=== PATIENT | female | born 1995 | race Caucasian/White ===

== ENCOUNTER 2019-09-28 20:13 | Emergency (ER) | payer BC, OTHER ==
[2019-09-28 20:27] VITALS: TEMP 98.3; BMI 16.6
[2019-09-28] MEDS ORDERED: SODIUM CHLORIDE 1,000 ML IV STA (20:54)
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
[2019-09-28] MEDS ORDERED: FOLIC ACID INJECTION - 1 MG, THIAMINE HCL 100 MG, MULTIVIT INJECTION ADULT 10 ML in SOD... IVPB ONE (21:09)
[2019-09-28 21:37] LABS: BASO % 0.6 % (0-2.0); EOS % 0.3 % (0-4.5); HEMATOCRIT 42.5 % (32.4-45.2); HEMOGLOBIN 14.9 GM/dL (10.7-15.3); LYMPH % 24.5 % (8-40); MCH 32.6 pg (25.7-33.7); MEAN CELL VOLUME 93.3 fl (80-96); NEUT % 64.6 % (42.8-82.8); PLATELET COUNT 287 K/MM3 (134-434); RBC 4.56 M/mm3 (3.60-5.2); RDW 14.1 % (11.6-15.6); WHITE BLOOD COUNT 6.3 K/mm3 (4.0-10.0)
--- NOTE | 2019-09-28 21:40 | PDOC ---
*Physical Exam - Vital Signs Last Vital Signs Temp Pulse Resp BP Pulse Ox 98.3 F 104 H 19 124/72 98 09/28/19 20:20 09/28/19 20:20 09/28/19 20:20 09/28/19 20:20 09/28/19 20:20 ED Treatment Course - LABORATORY CBC & Chemistry Diagram: 09/28/19 21:25 09/28/19 21:25 - ADDITIONAL ORDERS Additional order review: 09/28/19 21:25 RBC 4.56 MCV 93.3 MCHC 35.0 RDW 14.1 MPV 9.0 Neutrophils % 64.6 Lymphocytes % 24.5 Monocytes % 10.0 Eosinophils % 0.3 Basophils % 0.6 Medical Decision Making - Medical Decision Making 09/28/19 21:39 Patient seen by the advanced practice provider under my direct supervision. Ancillary testing reviewed as necessary. I agree with plan as outlined by the advanced practice provider. Discharge - Discharge Information Problems reviewed: Yes Clinical Impression/Diagnosis: Cystitis Condition: Fair Disposition: HOME - Additional Discharge Information Prescriptions: Cephalexin Monohydrate [Keflex -] 500 mg PO BID #14 capsule - Follow up/Referral - Patient Discharge Instructions Additional Instructions: Rest, drink lots of fluids: Teas, water, soups Avoid contact with others until fevers and symptoms resolved Lots of handwashing and good hygiene Continue [id number] medications for symptomatic relief Tylenol or Motrin for fever and pain Continue all of antibiotics until completed Followup with private physician in one week for repeat urinalysis/reevaluation Return to emergency department for worsened symptoms, fevers, dehydration - Post Discharge Activity
[2019-09-28] MEDS ORDERED: diazePAM 5 MG TABLET PO ONE (21:59)
[2019-09-28] MEDS ORDERED: ONDANSETRON 4 MG/2 ML VIAL IVPUSH ONE (21:59)
[2019-09-28] MEDS ORDERED: diazePAM 5 MG TABLET ONE (22:04)
[2019-09-28] MEDS ORDERED: ONDANSETRON 4 MG/2 ML VIAL ONE (22:04)
[2019-09-28 22:10] LABS: ALBUMIN 4.5 g/dl (3.4-5.0); BILIRUBIN,TOTAL 0.4 mg/dL (0.2-1); CALCIUM 9.2 mg/dL (8.5-10.1); POTASSIUM 3.8 mmol/L (3.5-5.1); TOT PROT 8.2 g/dl (6.4-8.2)
[2019-09-29 00:44] LABS: EPI CELLS 4.6 /HPF (0-5/HPF); HYALINE CASTS 13 /lpf (0-8); PH,URINE 5.5 (5.0-8.0); URINE APPEARANCE CLOUDY; URINE BACTERIA 145.4 /hpf (NEGATIVE); URINE BILIRUBIN NEGATIVE (NEGATIVE); URINE COLOR YELLOW; URINE GLUCOSE (UA) NEGATIVE (NEGATIVE); URINE KETONE TRACE (NEGATIVE); URINE LEUK ESTERASE 2+ (NEGATIVE); URINE NITRITE NEGATIVE (NEGATIVE); URINE PROTEIN NEGATIVE (NEGATIVE); URINE RBC 4 /hpf (0-4); URINE WBC 26 /hpf (0-5)
[2019-09-29 01:35] VITALS: BP 118/75; PULSE 94
== END 2019-09-29 01:20 | disposition home or self-care (01) ==
LOC: JER 20:13
PROC: 3E033GC Introduction of Other Therapeutic Substance into Peripheral Vein, Percutaneous Approach (ICD-10-PCS; principal; 2019-09-28)
PROC: 3E033GC Introduction of Other Therapeutic Substance into Peripheral Vein, Percutaneous Approach (ICD-10-PCS; 2019-09-28)
DX: N30.00 Acute cystitis without hematuria (principal); M79.7 Fibromyalgia; K62.89 Other specified diseases of anus and rectum; F11.10 Opioid abuse, uncomplicated; F17.210 Nicotine dependence, cigarettes, uncomplicated; Z86.19 Personal history of other infectious and parasitic diseases
CPT/HCPCS: 36415; 80053; 81003; 84703; 85025; 87086; 87389; 87491; 87591; 99283-25; J7030

== ENCOUNTER 2019-11-17 12:25 | Inpatient (IN) | payer OTHER, BC ==
[2019-11-17 12:55] VITALS: BMI 16.6
--- NOTE | 2019-11-17 14:40 | HP ---
COWS - Scale Resting Pulse: 1= [place] 81-100 Sweatin= Chills/Flushing Restless Observation: 1= Difficult to Sit Still Pupil Size: 1= Pupils >than Normal Bone or Joint Aches: 2= Severe Diffuse Aches Runny Nose/ Eye Tearin= Runny Nose/Eyes GI Upset > 30mins: 3= Vomiting/Diarrhea Tremor Observation: 2= Slight Tremor Visible Yawning Observation: 1= 1-2x During Session Anxiety or Irritability: 2=Irritable/Anxious Goose Flesh Skin: 0=Smooth Skin COWS Score: 16 CIWA Score Nausea/Vomitin Muscle Tremors: 3 Anxiety: 3 Agitation: 3 Paroxysmal Sweats: 1-Minimal Palms Moist Orientation: 0-Oriented Tacttile Disturbances: 1-Very Mild Itch/Numbness Auditory Disturbances: 0-None Visual Disturbances: 0-None Headache: 2-Mild CIWA-Ar Total Score: 15 - Admission Criteria OASAS Guidelines: Admission for Medically Managed Detox: Requires at least one of the followin. CIWA greater than 12 2. Seizures within the past 24 hours 3. Delirium tremens within the past 24 hours 4. Hallucinations within the past 24 hours 5. Acute intervention needed for co occurring medical disorder 6. Acute intervention needed for co occurring psychiatric disorder 7. Severe withdrawal that cannot be handled at a lower level of care (continued vomiting, continued diarrhea, abnormal vital signs) requiring intravenous medication and/or fluids 8. 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 homeless,unemployed,need detox,smoke 1/2 pack/day Admission ROS [facility] - HPI Chief Complaint: i need help to stop using heroin,cocaine,alcohol Allergies/Adverse Reactions: Allergies Allergy/AdvReac Type Severity Reaction Status Date / Time apple Allergy Verified 11/17/19 12:34 ruiz Allergy Verified 11/17/19 12:34 kiwi Allergy Verified 11/17/19 12:34 peach Allergy Verified 11/17/19 12:34 pear Allergy Verified 11/17/19 12:34 plum Allergy Verified 11/17/19 12:34 tree nut Allergy Verified 11/17/19 12:34 History of Present Illness: this 24 years old female with heroin,alcohol,cocaine dependence seeking detox, withdrawal symptom, first time to this facility seen in [facility] last night syncope denied seizure smoke 11/28 pac/lay last detox 2016 in [facility] anxiety,depression,insomnia longest sobriety 1 and half year Exam Limitations: No Limitations - Ebola screening Have you traveled outside of the country in the last 21 days: No (N) Have you had contact with anyone from an Ebola affected area: No Do you have a fever: No - Review of Systems Constitutional: Chills, Loss of Appetite, Malaise, Night Sweats, Changes in sleep, Weakness, Unintentional Wgt. Loss EENT: reports: Tearing, Nose Congestion Respiratory: reports: No Symptoms reported Cardiac: reports: No Symptoms Reported GI: reports: Diarrhea, Nausea, Abdominal cramping : reports: No Symptoms Reported Musculoskeletal: reports: Back Pain, Joint Pain, Muscle Pain Integumentary: reports: Dryness Neuro: reports: Headache, Tremors Endocrine: reports: No Symptoms Reported Hematology: reports: No Symptoms Reported Psychiatric: reports: Orientated x3, Anxious, Depressed Other Systems: Reviewed and Negative Patient History - Patient Medical History Hx Anemia: No Hx Asthma: No Hx Chronic Obstructive Pulmonary Disease (COPD): No Hx Cancer: No Hx Cardiac Disorders: No Hx Congestive Heart Failure: No Hx Hypertension: No Hx Hypercholesterolemia: No Hx Pacemaker: No HX Cerebrovascular Accident: No Hx Seizures: No Hx Dementia: No Hx Diabetes: No Hx Gastrointestinal Disorders: No Hx Liver Disease: No Hx Genitourinary Disorders: No Hx Sexually Transmitted Disorders: No Hx Renal Disease (ESRD): No Hx Thyroid Disease: No Hx Human Immunodeficiency Virus (HIV): No (last 11/14 negative) Hx Hepatitis C: No Hx Depression: Yes (anxiety,insomnia) Hx Suicide Attempt: No Hx Bipolar Disorder: No Hx Schizophrenia: No Other Medical History: no suicidal,no homicidal - Patient Surgical History Past Surgical History: No - PPD History Previous Implant?: Yes Documented Results: Negative w/o proof Implanted On Prior [facility] Admission?: No PPD to be Administered?: Yes - Reproductive History Patient is a Female of Child Bearing Age (11 -55 yrs old): Yes Last Menstrual Period: 11/17/19 Patient : No - Smoking Cessation Smoking history: Current some day smoker Aproximately how many cigarettes per day: 10 Hx Chewing Tobacco Use: Yes Initiated information on smoking cessation: Yes 'Breaking Loose' booklet given: 11/17/19 - Substance & Tx. History Hx Alcohol Use: Yes Hx Substance Use: Yes Substance Use Type: Alcohol, Cocaine, Heroin Hx Substance Use Treatment: Yes (2015) - Substances abused Heroin Substance route: Injection Frequency: Daily Amount used: 1- 4 bundles Age of first use: 21 Date of last use: 11/16/19 Alprazolam (Xanax) Substance route: Injection Frequency: Daily Amount used: 2-3 sticks Age of first use: 16 Date of last use: 11/16/19 Cocaine Substance route: Injection Frequency: Daily Amount used: 1-2 gram Age of first use: 17 Date of last use: 11/14/19 Crack Substance route: Smoking Frequency: Daily Amount used: dime -grams Age of first use: 23 Date of last use: 11/13/19 Alcohol Substance route: Oral Frequency: 1-2 times per week Amount used: 1/2 pint of liquor/2 of 12 ozs of beer Age of first use: 14 Date of last use: 11/15/19 Admission Physical Exam [facility] - Vital Signs Vital Signs: Vital Signs - 24 hr 11/17/19 12:36 Temperature 98.7 F Pulse Rate 92 H Respiratory 18 Rate Blood Pressure 90/60 - Physical General Appearance: Yes: Moderate Distress, Tremorous, Irritable, Sweating, Anxious HEENTM: Yes: Normocephalic, JOSEPH, Pharynx Normal Respiratory: Yes: Lungs Clear, Normal Breath Sounds, No Respiratory Distress Neck: Yes: Within Normal Limits, Supple, Trachea in good position Breast: Yes: Breast Exam Deferred Cardiology: Yes: Within Normal Limits, Regular Rhythm, Regular Rate, S1, S2 Abdominal: Yes: Within Normal Limits, Normal Bowel Sounds, Non Tender, Flat, Soft Genitourinary: Yes: Within Normal Limits Back: Yes: Muscle Spasm Musculoskeletal: Yes: Within Normal Limits, Back pain, Muscle Pain Extremities: Yes: Tremors, Other (cellulitis left thigh,left arm) Neurological: Yes: 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 intact, Fully Oriented, Alert, Motor Strength 5/5 Integumentary: Yes: Dry, Track Ramirez Lymphatic: Yes: Within Normal Limits - Diagnostic (1) Opioid dependence with withdrawal Current Visit: Yes Status: Acute (2) Cocaine dependence Current Visit: Yes Status: Acute (3) Alcohol use disorder Current Visit: Yes Status: Acute (4) Weight loss Current Visit: Yes Status: Acute (5) IVDU (intravenous drug user) Current Visit: Yes Status: Acute (6) Syncope Current Visit: Yes Status: Acute (7) Dehydration Current Visit: Yes Status: Acute (8) Cellulitis Current Visit: Yes Status: Acute Cleared for Admission [facility] - Detox or Rehab [facility] Level of Care: Medically Managed Detox Regimen/Protocol: Methadone/Valium Breathalyzer - Breathalyzer Breathalyzer: 0 Urine Drug Screen - Test Device Lot number: [id number] Expiration date: 06/26/21 - Control Is test valid?: Yes - Results Drug screen NEGATIVE: No Urine drug screen results: JOSE MIGUEL-Cocaine, MOP-Opiates, BZO-Benzodiazepines Inpatient Rehab Admission - Rehab Decision to Admit Inpatient rehab admission?: No
[2019-11-17] MEDS ORDERED: MENTHOL/PHENOL 1 EACH UD MM PRN (14:54)
[2019-11-17] MEDS ORDERED: METHADONE HCL 10 MG TABLET (FOR DETOX USE ONLY) PO ONE (14:54)
[2019-11-17] MEDS ORDERED: MAGNESIUM HYDROX 2400MG/30ML ORAL SUSPENSION 30 ML CUP PO PRN (14:54)
[2019-11-17] MEDS ORDERED: MAG HYDROX/AL HYDROX/SIMETH 30 ML UNIT-DOSE CUP PO PRN (14:54)
[2019-11-17] MEDS ORDERED: MELATONIN 5 MG TABLETS PO PRN (14:54)
[2019-11-17] MEDS ORDERED: IBUPROFEN 400 MG TABLET (FP) PO PRN (14:54)
[2019-11-17] MEDS ORDERED: NICOTINE POLACRILEX 2 MG GUM BUC PRN (14:54)
[2019-11-17] MEDS ORDERED: BISMUTH SUBSALICYLATE 524 MG/30 ML UD PO PRN (14:54)
[2019-11-17] MEDS ORDERED: MAGNESIUM CITRATE 300 ML BOTTLE PO PRN (14:54)
[2019-11-17] MEDS ORDERED: ACETAMINOPHEN 325 MG TABLET (FP) PO PRN ×2 (14:54)
[2019-11-17] MEDS ORDERED: cloNIDine HCL 0.1 MG TABLET PO PRN (14:54)
[2019-11-17] MEDS: NICOTINE 21 MG/24 HOURS TOPICAL PATCH TD SCH (15:57)
[2019-11-17] MEDS: diazePAM 5 MG TABLET PO PRN (16:00)
[2019-11-17] MEDS: hydrOXYzine PAMOATE 25 MG CAPSULE (FP) PO PRN (17:48)
[2019-11-17] MEDS: CEPHALEXIN MONOHYDRATE 500 MG CAPSULE (UD) PO SCH (17:48)
--- NOTE | 2019-11-17 18:43 | EKG ---
Test Reason : Blood Pressure : / mmHG Vent. Rate : 090 BPM Atrial Rate : 090 BPM P-R Int : 128 ms QRS Dur : 084 ms QT Int : 366 ms P-R-T Axes : 075 089 064 degrees QTc Int : 447 ms NORMAL SINUS RHYTHM NORMAL ECG NO PREVIOUS ECGS AVAILABLE Confirmed by DORIAN DIAZ MD ([id number]) on 11/17/2019 6:43:10 PM Referred By: DENNIS Confirmed By:DORIAN DIAZ MD
[2019-11-17] MEDS: diazePAM 5 MG TABLET PO SCH (22:48)
[2019-11-17] MEDS: THIAMINE HCL 100 MG TABLET (FP) PO SCH (22:48)
[2019-11-18] MEDS: CEPHALEXIN MONOHYDRATE 500 MG CAPSULE (UD) PO SCH ×5 (01:22→23:57)
[2019-11-18] MEDS: diazePAM 5 MG TABLET PO SCH ×3 (06:20→22:31)
[2019-11-18] MEDS ORDERED: METHADONE HCL 5 MG TABLET (FOR DETOX USE ONLY) ONE ×2 (08:45→09:59)
[2019-11-18] MEDS ORDERED: METHADONE HCL 10 MG TABLET (FOR DETOX USE ONLY) ONE ×2 (08:45→10:00)
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
[2019-11-18] MEDS ORDERED: METHADONE (DETOX) 20 MG, METHADONE (DETOX) 5 MG PO ONE (10:00)
[2019-11-18] MEDS: diazePAM 5 MG TABLET PO PRN ×2 (10:01→17:05)
[2019-11-18 10:37] LABS: HEMATOCRIT 35.6 % (32.4-45.2); HEMOGLOBIN 11.7 GM/dL (10.7-15.3); MCH 30.7 pg (25.7-33.7); MCHC 32.8 g/dl (32.0-36.0); MEAN CELL VOLUME 93.5 fl (80-96); MEAN PLT VOLUME 8.7 fl (7.5-11.1); PLATELET COUNT 274 K/MM3 (134-434); RDW 14.2 % (11.6-15.6); WHITE BLOOD COUNT 8.7 K/mm3 (4.0-10.0)
[2019-11-18 10:45] LABS: ALBUMIN 2.9 g/dl (3.4-5.0); BILIRUBIN,TOTAL 0.1 mg/dL (0.2-1); BLOOD UREA NITROGEN 9.3 mg/dL (7-18); CALCIUM 8.5 mg/dL (8.5-10.1); CREATININE 0.7 mg/dL (0.55-1.3); POTASSIUM 4.1 mmol/L (3.5-5.1); TOT PROT 6.2 g/dl (6.4-8.2)
--- NOTE | 2019-11-18 10:48 | PN ---
[facility] CIWA - CIWA Score Nausea/Vomitin-No Nausea/No Vomiting Muscle Tremors: 3 Anxiety: 3 Agitation: 3 Paroxysmal Sweats: 3 Orientation: 0-Oriented Tacttile Disturbances: 0-None Auditory Disturbances: 0-None Visual Disturbances: 0-None Headache: 0-None Present CIWA-Ar Total Score: 12 BHS COWS - Scale Resting Pulse: 2= [place] 101-120 Sweatin= Chills/Flushing Restless Observation: 1= Difficult to Sit Still Pupil Size: 0= Normal to Room Light Bone or Joint Aches: 1= Mild Discomfort Runny Nose/ Eye Tearin= Runny Nose/Eyes GI Upset > 30mins: 1= Stomach Cramp Tremor Observation of Outstretched Hands: 2= Slight Tremor Visible Yawning Observation: 1= 1-2x During Session Anxiety or Irritability: 2=Irritable/Anxious Goose Flesh Skin: 3=Piloerection COWS Score: 16 S Progress Note (SOAP) Subjective: sweats shakes interrupted sleep body aches restless agitation Objective: 11/18/19 10:47 Vital Signs Temperature 96.4 F L 11/18/19 09:25 Pulse Rate 116 H 11/18/19 09:25 Respiratory Rate 18 11/18/19 09:25 Blood Pressure 107/61 11/18/19 09:25 O2 Sat by Pulse Oximetry (%) Laboratory Tests 11/18/19 11/18/19 07:45 07:45 WBC 8.7 RBC 3.80 Hgb 11.7 Hct 35.6 D MCV 93.5 MCH 30.7 MCHC 32.8 RDW 14.2 Plt Count 274 MPV 8.7 Sodium 140 Potassium 4.1 Chloride 109 H Carbon Dioxide 28 Anion Gap 4 L BUN 9.3 Creatinine 0.7 Est GFR (CKD-EPI)AfAm 140.55 Est GFR (CKD-EPI)NonAf 121.27 Random Glucose 80 Calcium 8.5 Total Bilirubin 0.1 L AST 16 ALT 14 Alkaline Phosphatase 46 Total Protein 6.2 L Albumin 2.9 L aaox3 ambulating no acute distress Assessment: 11/18/19 10:48 withdrawals Plan: continue detox increase fluids
[2019-11-18] MEDS: PRENATAL VITAMINS W/ FOLIC ACID TABLET (FP) PO SCH (10:57)
[2019-11-18] MEDS: NICOTINE 21 MG/24 HOURS TOPICAL PATCH TD SCH (10:57)
[2019-11-18] MEDS: METHOCARBAMOL 500 MG TABLET PO PRN (22:31)
[2019-11-18] MEDS: QUEtiapine FUMARATE 50 MG TABLET PO SCH (22:31)
[2019-11-18] MEDS: THIAMINE HCL 100 MG TABLET (FP) PO SCH (22:31)
[2019-11-19] MEDS: CEPHALEXIN MONOHYDRATE 500 MG CAPSULE (UD) PO SCH ×3 (06:30→18:06)
[2019-11-19] MEDS: diazePAM 5 MG TABLET PO SCH ×2 (06:36→18:06)
[2019-11-19] MEDS ORDERED: IBUPROFEN 600 MG TABLET (FP) PO PRN (09:59)
[2019-11-19] MEDS ORDERED: METHADONE HCL 10 MG TABLET (FOR DETOX USE ONLY) PO ONE (10:00)
--- NOTE | 2019-11-19 10:01 | PN ---
[facility] CIWA - CIWA Score Nausea/Vomitin-No Nausea/No Vomiting Muscle Tremors: 2 Anxiety: 2 Agitation: 3 Paroxysmal Sweats: 2 Orientation: 0-Oriented Tacttile Disturbances: 0-None Auditory Disturbances: 0-None Visual Disturbances: 0-None Headache: 0-None Present CIWA-Ar Total Score: 9 BHS COWS - Scale Resting Pulse: 2= [place] 101-120 Sweatin= Chills/Flushing Restless Observation: 0= Sits Still Pupil Size: 0= Normal to Room Light Bone or Joint Aches: 1= Mild Discomfort Runny Nose/ Eye Tearin= Nasal Congestion GI Upset > 30mins: 0= None Tremor Observation of Outstretched Hands: 1= Tremor [place], Not Seen Yawning Observation: 1= 1-2x During Session Anxiety or Irritability: 2=Irritable/Anxious Goose Flesh Skin: 0=Smooth Skin COWS Score: 9 S Progress Note (SOAP) Subjective: restless muscle cramps sweats anxiety Objective: 11/19/19 09:59 Vital Signs Temperature 99.3 F 11/19/19 09:30 Pulse Rate 108 H 11/19/19 09:30 Respiratory Rate 18 11/19/19 09:30 Blood Pressure 106/70 11/19/19 09:30 O2 Sat by Pulse Oximetry (%) Laboratory Tests 11/17/19 11/18/19 11/18/19 08:39 07:45 07:45 WBC 8.7 RBC 3.80 Hgb 11.7 Hct 35.6 D MCV 93.5 MCH 30.7 MCHC 32.8 RDW 14.2 Plt Count 274 MPV 8.7 Sodium 140 Potassium 4.1 Chloride 109 H Carbon Dioxide 28 Anion Gap 4 L BUN 9.3 Creatinine 0.7 Est GFR (CKD-EPI)AfAm 140.55 Est GFR (CKD-EPI)NonAf 121.27 Random Glucose 80 Calcium 8.5 Total Bilirubin 0.1 L AST 16 ALT 14 Alkaline Phosphatase 46 Total Protein 6.2 L Albumin 2.9 L POC Urine HCG, Qual Negative RPR Titer 11/18/19 07:45 WBC RBC Hgb Hct MCV MCH MCHC RDW Plt Count MPV Sodium Potassium Chloride Carbon Dioxide Anion Gap BUN Creatinine Est GFR (CKD-EPI)AfAm Est GFR (CKD-EPI)NonAf Random Glucose Calcium Total Bilirubin AST ALT Alkaline Phosphatase Total Protein Albumin POC Urine HCG, Qual RPR Titer Nonreactive aaox3 ambulating no acute distress Assessment: 11/19/19 10:00 withdrawals Plan: continue detox increase fluids motrin 600mg prn roboxin prn
[2019-11-19] MEDS: PRENATAL VITAMINS W/ FOLIC ACID TABLET (FP) PO SCH (10:15)
[2019-11-19] MEDS: diazePAM 5 MG TABLET PO PRN ×2 (10:16→22:28)
[2019-11-19] MEDS: NICOTINE 21 MG/24 HOURS TOPICAL PATCH TD SCH (10:16)
[2019-11-19] MEDS: METHOCARBAMOL 500 MG TABLET PO PRN ×2 (10:16→22:29)
[2019-11-19 10:41] LABS: HYALINE CASTS 4 /lpf (0-8); URINE APPEARANCE CLOUDY; URINE BACTERIA 51.8 /hpf (NEGATIVE); URINE BILIRUBIN NEGATIVE (NEGATIVE); URINE COLOR YELLOW; URINE GLUCOSE (UA) NEGATIVE (NEGATIVE); URINE KETONE NEGATIVE (NEGATIVE); URINE LEUK ESTERASE 2+ (NEGATIVE); URINE NITRITE NEGATIVE (NEGATIVE); URINE PROTEIN NEGATIVE (NEGATIVE); URINE RBC 2 /hpf (0-4); URINE UROBILINOGEN 0.2 mg/dL (0.2-1.0); URINE WBC 12 /hpf (0-5)
[2019-11-19 11:05] LABS: YEAST NONE SEEN (NEGATIVE)
[2019-11-19] MEDS: hydrOXYzine PAMOATE 25 MG CAPSULE (FP) PO PRN (12:52)
[2019-11-19] MEDS: QUEtiapine FUMARATE 50 MG TABLET PO SCH (22:29)
[2019-11-19] MEDS: THIAMINE HCL 100 MG TABLET (FP) PO SCH (22:29)
[2019-11-20] MEDS: CEPHALEXIN MONOHYDRATE 500 MG CAPSULE (UD) PO SCH ×4 (00:15→17:12)
[2019-11-20] MEDS ORDERED: diazePAM 5 MG TABLET PO ONE (06:00)
[2019-11-20] MEDS ORDERED: HYDROCORTISONE 1% TOPICAL CREAM 30 GM TUBE TP PRN (08:57)
[2019-11-20] MEDS ORDERED: METHADONE HCL 5 MG TABLET (FOR DETOX USE ONLY) ONE (09:58)
[2019-11-20] MEDS ORDERED: METHADONE HCL 10 MG TABLET (FOR DETOX USE ONLY) ONE (09:58)
[2019-11-20] MEDS ORDERED: METHADONE (DETOX) 10 MG, METHADONE (DETOX) 5 MG PO ONE (10:00)
[2019-11-20] MEDS: PRENATAL VITAMINS W/ FOLIC ACID TABLET (FP) PO SCH (10:33)
[2019-11-20] MEDS: NICOTINE 21 MG/24 HOURS TOPICAL PATCH TD SCH (10:36)
--- NOTE | 2019-11-20 11:58 | PN ---
[facility] CIWA - CIWA Score Nausea/Vomitin-No Nausea/No Vomiting Muscle Tremors: 2 Anxiety: 1-Mildly Anxious Agitation: 1-Slight > Activity Paroxysmal Sweats: 1-Minimal Palms Moist Orientation: 0-Oriented Tacttile Disturbances: 0-None Auditory Disturbances: 0-None Visual Disturbances: 0-None Headache: 0-None Present CIWA-Ar Total Score: 5 BHS COWS - Scale Resting Pulse: 2= MS 101-120 Sweatin= Chills/Flushing Restless Observation: 1= Difficult to Sit Still Pupil Size: 0= Normal to Room Light Bone or Joint Aches: 1= Mild Discomfort Runny Nose/ Eye Tearin= None GI Upset > 30mins: 0= None Tremor Observation of Outstretched Hands: 1= Tremor [place], Not Seen Yawning Observation: 1= 1-2x During Session Anxiety or Irritability: 1=Feels Anxious/Irritable Goose Flesh Skin: 0=Smooth Skin COWS Score: 8 BHS Progress Note (SOAP) Subjective: abscess on my leg sweats anxiety Objective: 11/20/19 11:56 Vital Signs Temperature 98.1 F 11/20/19 09:24 Pulse Rate 105 H 11/20/19 09:24 Respiratory Rate 18 11/20/19 09:24 Blood Pressure 101/71 11/20/19 09:24 O2 Sat by Pulse Oximetry (%) aaox3 ambulating no acute distress Assessment: 11/20/19 11:56 withdrawals noted two abscess: one on left upper arm and left top thigh area. pt is currently on antibiotics/ encouraged her to apply warm compress hytone ordered to apply to prevent chafing as she walks. Plan: continue detox hytone ordered
[2019-11-20] MEDS: diazePAM 5 MG TABLET PO PRN (13:13)
[2019-11-20] MEDS: hydrOXYzine PAMOATE 25 MG CAPSULE (FP) PO PRN (17:12)
[2019-11-20] MEDS: QUEtiapine FUMARATE 50 MG TABLET PO SCH (22:39)
[2019-11-20] MEDS: THIAMINE HCL 100 MG TABLET (FP) PO SCH (22:39)
[2019-11-21] MEDS: CEPHALEXIN MONOHYDRATE 500 MG CAPSULE (UD) PO SCH ×3 (00:03→11:32)
[2019-11-21 09:19] VITALS: BP 104/66; PULSE 106; TEMP 97
[2019-11-21] MEDS ORDERED: METHADONE HCL 10 MG TABLET (FOR DETOX USE ONLY) PO ONE (10:00)
[2019-11-21] MEDS: NICOTINE 21 MG/24 HOURS TOPICAL PATCH TD SCH (10:10)
[2019-11-21] MEDS: PRENATAL VITAMINS W/ FOLIC ACID TABLET (FP) PO SCH (10:11)
[2019-11-21] MEDS ORDERED: TRIMETHOBENZAMIDE HCL 300 MG CAPSULE PO PRN (10:33)
[2019-11-21] MEDS ORDERED: IBUPROFEN 400 MG TABLET (FP) PO PRN (10:34)
[2019-11-21] MEDS ORDERED: TRIMETHOBENZAMIDE HCL 200MG/2ML INJ IM PRN (10:35)
--- NOTE | 2019-11-21 12:00 | PN ---
S Progress Note Note: pt states that the abscess to left thigh is causing more pain and is on fire. Pt states this happened within minutes skin/abscess assessed and a dime size pus has formed and surrounding tissue in angry and hot to touch. Dr. Soriano at [place] [facility] was made aware. pt also requesting to be d/c after the ED assesses her abscess and will have her pick her up from there. Pt is currently appearing better, minimal withdrawals and referral will be provided.
--- NOTE | 2019-11-21 12:03 | DS ---
[facility] Detox Discharge Summary Admission Date: 11/17/19 Discharge Date: 11/21/19 - History Present History: Alcohol Dependence, Opioid Dependence, Sedative Dependence - Physical Exam Results Vital Signs: Vital Signs Temperature 97.0 F L 11/21/19 09:18 Pulse Rate 106 H 11/21/19 09:18 Respiratory Rate 18 11/21/19 09:18 Blood Pressure 104/66 11/21/19 09:18 O2 Sat by Pulse Oximetry (%) Pertinent Admission Physical Exam Findings: Vital Signs Temperature 97.0 F L 11/21/19 09:18 Pulse Rate 106 H 11/21/19 09:18 Respiratory Rate 18 11/21/19 09:18 Blood Pressure 104/66 11/21/19 09:18 O2 Sat by Pulse Oximetry (%) Laboratory Tests 11/17/19 11/18/19 11/18/19 08:39 07:45 07:45 WBC 8.7 RBC 3.80 Hgb 11.7 Hct 35.6 D MCV 93.5 MCH 30.7 MCHC 32.8 RDW 14.2 Plt Count 274 MPV 8.7 Sodium 140 Potassium 4.1 Chloride 109 H Carbon Dioxide 28 Anion Gap 4 L BUN 9.3 Creatinine 0.7 Est GFR (CKD-EPI)AfAm 140.55 Est GFR (CKD-EPI)NonAf 121.27 Random Glucose 80 Calcium 8.5 Total Bilirubin 0.1 L AST 16 ALT 14 Alkaline Phosphatase 46 Total Protein 6.2 L Albumin 2.9 L Urine Color Urine Appearance Urine pH Ur Specific [place] Urine Protein Urine Glucose (UA) Urine Ketones Urine Blood Urine Nitrite Urine Bilirubin Urine Urobilinogen Ur Leukocyte Esterase Urine WBC (Auto) Urine RBC (Auto) Urine Casts (Auto) U Epithel Cells (Auto) Urine Bacteria (Auto) Urine Yeast (Auto) POC Urine HCG, Qual Negative RPR Titer 11/18/19 11/19/19 07:45 08:39 WBC RBC Hgb Hct MCV MCH MCHC RDW Plt Count MPV Sodium Potassium Chloride Carbon Dioxide Anion Gap BUN Creatinine Est GFR (CKD-EPI)AfAm Est GFR (CKD-EPI)NonAf Random Glucose Calcium Total Bilirubin AST ALT Alkaline Phosphatase Total Protein Albumin Urine Color Yellow Urine Appearance Cloudy Urine pH 5.0 Ur Specific [place] 1.021 Urine Protein Negative Urine Glucose (UA) Negative Urine Ketones Negative Urine Blood 3+ H Urine Nitrite Negative Urine Bilirubin Negative Urine Urobilinogen 0.2 Ur Leukocyte Esterase 2+ H Urine WBC (Auto) 12 Urine RBC (Auto) 2 Urine Casts (Auto) 4 U Epithel Cells (Auto) 13.0 Urine Bacteria (Auto) 51.8 Urine Yeast (Auto) None seen POC Urine HCG, Qual RPR Titer Nonreactive pt will be sent to [facility] for and abscess drainage to left upper thigh and once she is cleared she can be d/c to home or as per MD recommendation. - Treatment Hospital Course: Detox Protocol Followed, Detoxed Safely, Responded well, Discharged Condition Good, Rehab Referral Accepted Patient has Accepted a Rehab Referral to: send pt to [place] [facility] - Medication Discharge Medications: Ambulatory Orders Unobtainable 11/17/19 - Diagnosis (1) Alcohol dependence, uncomplicated Current Visit: Yes Status: Chronic (2) Cellulitis Current Visit: Yes Status: Acute Qualifiers: Site of cellulitis: extremity Site of cellulitis of extremity: lower extremity Laterality: left Qualified Code(s): L03.116 - Cellulitis of left lower limb (3) Cocaine dependence Current Visit: Yes Status: Chronic Qualifiers: Substance use status: uncomplicated Qualified Code(s): F14.20 - Cocaine dependence, uncomplicated (4) IVDU (intravenous drug user) Current Visit: Yes Status: Chronic (5) Opioid dependence with withdrawal Current Visit: Yes Status: Chronic (6) Sedative, hypnotic or anxiolytic dependence, uncomplicated Current Visit: Yes Status: Chronic (7) Substance induced mood disorder Current Visit: Yes Status: Acute (8) Substance-induced sleep disorder Current Visit: Yes Status: Acute (9) Uncomplicated opioid dependence Current Visit: Yes Status: Acute (10) 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
[2019-11-22] MEDS ORDERED: METHADONE HCL 5 MG TABLET (FOR DETOX USE ONLY) PO ONE (06:00)
== END 2019-11-21 13:11 | disposition short-term general hospital (02) | DRG 773 ==
LOC: YASAS 12:25 → Y6N 15:14
PROVIDERS: ADMIT Allergy & Immunology; ATTEND Allergy & Immunology
PROC: HZ2ZZZZ Detoxification Services for Substance Abuse Treatment (ICD-10-PCS; principal; 2019-11-17)
DX: F11.23 Opioid dependence with withdrawal (principal); F10.20 Alcohol dependence, uncomplicated; F13.20 Sedative, hypnotic or anxiolytic dependence, uncomplicated; F14.20 Cocaine dependence, uncomplicated; F17.210 Nicotine dependence, cigarettes, uncomplicated; F19.282 Other psychoactive substance dependence with psychoactive substance-induced sleep disorder; F19.24 Other psychoactive substance dependence with psychoactive substance-induced mood disorder; F33.1 Major depressive disorder, recurrent, moderate; F41.8 Other specified anxiety disorders; L03.116 Cellulitis of left lower limb; L03.114 Cellulitis of left upper limb; M79.7 Fibromyalgia; M41.9 Scoliosis, unspecified; M54.30 Sciatica, unspecified side; E86.0 Dehydration; R55 Syncope and collapse; R63.4 Abnormal weight loss; Z68.1 Body mass index [BMI] 19.9 or less, adult; S39.093A Other injury of muscle, fascia and tendon of pelvis, initial encounter; Z59.0 Homelessness; Z91.018 Allergy to other foods
CPT/HCPCS: 36415; 80053; 81003; 81025; 85027; 86593; 93005; 93010

== ENCOUNTER 2019-11-21 13:25 | Emergency (ER) | payer BC, OTHER ==
[2019-11-21 13:53] VITALS: BP 103/68; PULSE 89; TEMP 98.9; BMI 18.3
[2019-11-21] MEDS ORDERED: BENZOCAINE 20% 57 GM BOTTLE TP ONE ×2 (14:27→14:33)
--- NOTE | 2019-11-21 14:59 | PDOC ---
Documentation entered by Lalo Sterling SCRIBE, acting as scribe for Sumanth Sun MD. Sumanth Sun MD: This documentation has been prepared by the Asher hankins Nirvannie, SCRIBE, under my direction and personally reviewed by me in its entirety. I confirm that the documentation accurately reflects all work, treatment, procedures, and medical decision making performed by me. Attending Attestation - Resident Resident Name: Genaro Hinkle - ED Attending Attestation I have performed the following: I have examined & evaluated the patient, The case was reviewed & discussed with the resident, I agree w/resident's findings & plan, Exceptions are as noted - HPI HPI: 11/21/19 14:57 24 years old with past medical history significant for IV drug use presents with small abscess to left thigh at injection site. - Physicial Exam PE: 11/21/19 14:57 Vitals: Triage Vital signs reviewed General Appearance: No acute distress, well nourished well developed, Extremities: Full range of motion to all extremities, no cyanosis, clubbing, or edema Skin: Warm and dry, small abscess superficial to left thigh with surrounding 6 x 6 centimeter area of cellulitis Psych: Normal mood, normal affect - Medical Decision Making 11/21/19 14:58 Abscess I indeed drainage of pus superficial not deep will place patient on clindamycin p.o. for surrounding cellulitis given IV drug use very strict return instructions discussed with patient Findings, need for follow-up and strict return instructions discussed with patient.
[2019-11-21] MEDS ORDERED: CLINDAMYCIN HCL 150 MG CAPSULE (FP) PO ONE (15:08)
[2019-11-21] MEDS ORDERED: CLINDAMYCIN HCL 150 MG CAPSULE (FP) ONE (15:38)
== END 2019-11-21 15:43 | disposition home or self-care (01) ==
LOC: JER 13:25
PROC: 0J9M0ZZ Drainage of Left Upper Leg Subcutaneous Tissue and Fascia, Open Approach (ICD-10-PCS; principal; 2019-11-21)
DX: L02.416 Cutaneous abscess of left lower limb (principal)
CPT/HCPCS: 99281-25

== ENCOUNTER 2019-11-27 14:30 | Inpatient (IN) | payer BC, OTHER ==
[2019-11-27 15:23] VITALS: BMI 17.4
--- NOTE | 2019-11-27 17:20 | HP ---
COWS - Scale Resting Pulse: 2= [place] 101-120 Sweatin=Flushed/Facial Moisture Restless Observation: 3= Extraneous Movement Pupil Size: 1= Pupils >than Normal Bone or Joint Aches: 2= Severe Diffuse Aches Runny Nose/ Eye Tearin= Nasal Congestion GI Upset > 30mins: 5=Frequent Vomit/Diarrhea Tremor Observation: 2= Slight Tremor Visible Yawning Observation: 1= 1-2x During Session Anxiety or Irritability: 4=Extreme Anxiety Goose Flesh Skin: 3=Piloerection COWS Score: 26 CIWA Score Nausea/Vomitin-Mild Nausea/No Vomiting Muscle Tremors: 3 Anxiety: 4-Mod. Anxious/Guarded Agitation: 4-Moderately Restless Paroxysmal Sweats: 1-Minimal Palms Moist Orientation: 0-Oriented Tacttile Disturbances: 0-None Auditory Disturbances: 0-None Visual Disturbances: 0-None Headache: 1-Very Mild CIWA-Ar Total Score: 14 - Admission Criteria OASAS Guidelines: Admission for Medically Managed Detox: Requires at least one of the followin. CIWA greater than 12 2. Seizures within the past 24 hours 3. Delirium tremens within the past 24 hours 4. Hallucinations within the past 24 hours 5. Acute intervention needed for co occurring medical disorder 6. Acute intervention needed for co occurring psychiatric disorder 7. Severe withdrawal that cannot be handled at a lower level of care (continued vomiting, continued diarrhea, abnormal vital signs) requiring intravenous medication and/or fluids 8. 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 ...LMP: 11/17/19 Psych: Yes: Anxiety (no medication), Depression - Smoking History Smoking history: Current every day smoker Have you smoked in the past 12 months: Yes Aproximately how many cigarettes per day: 10 - Alcohol/Substance Use Hx Alcohol Use: No History of Substance Use: reports: Cocaine, Heroin - Social History Occupation: unemployed History of Recent Travel: Yes Admission [facility] Chief Complaint: here for heroin and xanax detox Allergies/Adverse Reactions: Allergies Allergy/AdvReac Type Severity Reaction Status Date / Time apple Allergy Verified 11/27/19 15:08 ruiz Allergy Verified 11/27/19 15:08 kiwi Allergy Verified 11/27/19 15:08 peach Allergy Verified 11/27/19 15:08 pear Allergy Verified 11/27/19 15:08 plum Allergy Verified 11/27/19 15:08 tree nut Allergy Verified 11/27/19 15:08 History of Present Illness: 24 yo with heroin and sedative use disorder. Left here last week to go to ER for Rx of cellulitis. Pt relapsed quickly to heroin use after detox. Pt states has been using heroin for 3 years prior to that was using pain pills since high school. Pt states she and her family discussed with insurance company and because the discharge plan was unclear at the last discharge- pt got permission to return today for detox. Pt is homeless but may have a place to stay at discharge from here. Agreeable to go for methadone MAT. heroin- 2-4 bundles/day, IM injections to upper arms- deltoid and thigh, never OD'd. Utox- pos for fen, MPO, MTD, BZO Benzo- uses 2-4 mg xanax DUR- no recent meds. - Ebola screening Have you traveled outside of the country in the last 21 days: No (N) Have you had contact with anyone from an Ebola affected area: No Do you have a fever: No Patient History - Patient Medical History Hx Anemia: No Hx Asthma: No Hx Chronic Obstructive Pulmonary Disease (COPD): No Hx Cancer: No Hx Cardiac Disorders: No Hx Congestive Heart Failure: No Hx Hypertension: No Hx Hypercholesterolemia: No Hx Pacemaker: No HX Cerebrovascular Accident: No Hx Seizures: No Hx Dementia: No Hx Diabetes: No Hx Gastrointestinal Disorders: No Hx Liver Disease: No Hx Genitourinary Disorders: No Hx Sexually Transmitted Disorders: No Hx Renal Disease (ESRD): No Hx Thyroid Disease: No Hx Human Immunodeficiency Virus (HIV): No (last 11/14 negative) Hx Hepatitis C: No Hx Depression: Yes (anxiety,insomnia) Hx Suicide Attempt: No Hx Bipolar Disorder: No Hx Schizophrenia: No - Patient Surgical History Past Surgical History: No Hx Neurologic Surgery: No Hx Cataract Extraction: No Hx Cardiac Surgery: No Hx Lung Surgery: No Hx Breast Surgery: No Hx Breast Biopsy: No Hx Abdominal Surgery: No Hx Appendectomy: No Hx Cholecystectomy: No Hx Genitourinary Surgery: No Hx Section: No Hx Orthopedic Surgery: No Anesthesia Reaction: No - PPD History Date: 11/19/19 - Reproductive History Last Menstrual Period: 11/17/19 - Smoking Cessation Smoking history: Current every day smoker Have you smoked in the past 12 months: Yes Aproximately how many cigarettes per day: 10 Hx Chewing Tobacco Use: No Initiated information on smoking cessation: Yes 'Breaking Loose' booklet given: 11/27/19 - Substances abused Heroin Substance route: Injection Frequency: Daily Amount used: 1- 4 bundles Age of first use: 21 Date of last use: 11/27/19 Alprazolam (Xanax) Substance route: Injection Frequency: Daily Amount used: 2-3 sticks Age of first use: 16 Date of last use: 11/16/19 Cocaine Substance route: Injection Frequency: Daily Amount used: 1-2 gram Age of first use: 17 Date of last use: 11/14/19 Crack Substance route: Smoking Frequency: Daily Amount used: a dime to 3grams Age of first use: 23 Date of last use: 11/23/19 Alcohol Substance route: Oral Frequency: 1-2 times per week Amount used: 1/2 pint of liquor/2 of 12 ozs of beer Age of first use: 14 Date of last use: 11/15/19 Admission Physical Exam [facility] - Vital Signs Vital Signs: Vital Signs - 24 hr 11/27/19 15:14 Temperature 99.1 F Pulse Rate 96 H Respiratory 16 Rate Blood Pressure 98/63 - Physical General Appearance: Yes: Mild Distress, Severe Distress, Cachetic, Thin HEENTM: Yes: Within Normal Limits, EOMI, Hearing grossly Normal, Normal ENT Inspection Respiratory: Yes: Within Normal Limits, Lungs Clear Cardiology: Yes: Within Normal Limits, Regular Rhythm, Regular Rate Abdominal: Yes: Within Normal Limits, Normal Bowel Sounds Back: Yes: Within Normal Limits Musculoskeletal: Yes: Within Normal Limits Extremities: Yes: Within Normal Limits, Normal Capillary Refill Neurological: Yes: Within Normal Limits Integumentary: Yes: Other (with hardened areas of both deltoid muscles- no evidence of infection- on antibiotics) - Diagnostic (1) Cellulitis Current Visit: No Status: Acute Qualifiers: Site of cellulitis: extremity Site of cellulitis of extremity: lower extremity Laterality: left Qualified Code(s): L03.116 - Cellulitis of left lower limb (2) Substance induced mood disorder Current Visit: No Status: Acute (3) IVDU (intravenous drug user) Current Visit: No Status: Chronic (4) MDD (major depressive disorder), recurrent episode, moderate Current Visit: No Status: Chronic (5) Opioid dependence with withdrawal Current Visit: No Status: Chronic (6) Sedative, hypnotic or anxiolytic dependence, uncomplicated Current Visit: No Status: Chronic Breathalyzer - Breathalyzer Breathalyzer: 0 Urine Drug Screen - Test Device Lot number: [id number] Expiration date: 06/26/21 - Control Is test valid?: Yes - Results Drug screen NEGATIVE: No Urine drug screen results: JOSE MIGUEL-Cocaine, MOP-Opiates, BZO-Benzodiazepines Inpatient Rehab Admission - Rehab Decision to Admit Inpatient rehab admission?: No
[2019-11-27] MEDS ORDERED: IBUPROFEN 400 MG TABLET (FP) PO PRN (17:29)
[2019-11-27] MEDS ORDERED: METHOCARBAMOL 500 MG TABLET PO PRN (17:29)
[2019-11-27] MEDS ORDERED: ACETAMINOPHEN 325 MG TABLET (FP) PO PRN ×2 (17:29)
[2019-11-27] MEDS ORDERED: BISMUTH SUBSALICYLATE 524 MG/30 ML UD PO PRN (17:29)
[2019-11-27] MEDS ORDERED: NICOTINE POLACRILEX 2 MG GUM BUC PRN (17:29)
[2019-11-27] MEDS ORDERED: hydrOXYzine PAMOATE 25 MG CAPSULE (FP) PO PRN (17:29)
[2019-11-27] MEDS ORDERED: MAGNESIUM HYDROX 2400MG/30ML ORAL SUSPENSION 30 ML CUP PO PRN (17:29)
[2019-11-27] MEDS ORDERED: MENTHOL/PHENOL 1 EACH UD MM PRN (17:29)
[2019-11-27] MEDS ORDERED: MAGNESIUM CITRATE 300 ML BOTTLE PO PRN (17:29)
[2019-11-27] MEDS ORDERED: NALOXONE HCL 0.4 MG/ML VIAL IM PRN (17:29)
[2019-11-27] MEDS ORDERED: MAG HYDROX/AL HYDROX/SIMETH 30 ML UNIT-DOSE CUP PO PRN (17:29)
[2019-11-27] MEDS ORDERED: cloNIDine HCL 0.1 MG TABLET PO PRN (17:29)
[2019-11-27] MEDS ORDERED: diazePAM 5 MG TABLET PO ONE (17:45)
[2019-11-27] MEDS ORDERED: METHADONE HCL 10 MG TABLET (FOR DETOX USE ONLY) PO ONE (17:46)
[2019-11-27] MEDS ORDERED: MELATONIN 5 MG TABLETS PO PRN (22:00)
[2019-11-27] MEDS: THIAMINE HCL 100 MG TABLET (FP) PO SCH (22:38)
[2019-11-27] MEDS: diazePAM 5 MG TABLET PO SCH (22:39)
[2019-11-28] MEDS: diazePAM 5 MG TABLET PO SCH ×3 (06:17→22:21)
[2019-11-28] MEDS ORDERED: METHADONE HCL 5 MG TABLET (FOR DETOX USE ONLY) ONE (08:45)
[2019-11-28] MEDS ORDERED: METHADONE HCL 10 MG TABLET (FOR DETOX USE ONLY) ONE (08:46)
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
[2019-11-28] MEDS: NICOTINE 21 MG/24 HOURS TOPICAL PATCH TD SCH (09:54)
[2019-11-28] MEDS: PRENATAL VITAMINS W/ FOLIC ACID TABLET (FP) PO SCH (09:54)
[2019-11-28] MEDS ORDERED: METHADONE (DETOX) 20 MG, METHADONE (DETOX) 5 MG PO ONE (10:00)
[2019-11-28 10:11] LABS: HEMATOCRIT 34.6 % (32.4-45.2); HEMOGLOBIN 11.2 GM/dL (10.7-15.3); MCH 30.2 pg (25.7-33.7); MCHC 32.4 g/dl (32.0-36.0); MEAN CELL VOLUME 93.2 fl (80-96); MEAN PLT VOLUME 7.9 fl (7.5-11.1); PLATELET COUNT 285 K/MM3 (134-434); RBC 3.71 M/mm3 (3.60-5.2); RDW 14.3 % (11.6-15.6); WHITE BLOOD COUNT 6.6 K/mm3 (4.0-10.0)
[2019-11-28 10:39] LABS: ALBUMIN 3.1 g/dl (3.4-5.0); BILIRUBIN,TOTAL 0.1 mg/dL (0.2-1); BLOOD UREA NITROGEN 14.6 mg/dL (7-18); CALCIUM 9.1 mg/dL (8.5-10.1); CREATININE 0.8 mg/dL (0.55-1.3); TOT PROT 6.4 g/dl (6.4-8.2)
--- NOTE | 2019-11-28 13:32 | PN ---
S CIWA - CIWA Score Nausea/Vomitin-No Nausea/No Vomiting Muscle Tremors: 2 Anxiety: 3 Agitation: 2 Paroxysmal Sweats: 3 Orientation: 0-Oriented Tacttile Disturbances: 0-None Auditory Disturbances: 0-None Visual Disturbances: 0-None Headache: 2-Mild CIWA-Ar Total Score: 12 BHS COWS - Scale Resting Pulse: 0= MS 80 or Below Sweatin= Beads of Sweat on Face Restless Observation: 1= Difficult to Sit Still Pupil Size: 0= Normal to Room Light Bone or Joint Aches: 2= Severe Diffuse Aches Runny Nose/ Eye Tearin= None GI Upset > 30mins: 0= None Tremor Observation of Outstretched Hands: 2= Slight Tremor Visible Yawning Observation: 1= 1-2x During Session Anxiety or Irritability: 2=Irritable/Anxious Goose Flesh Skin: 0=Smooth Skin COWS Score: 11 S Progress Note (SOAP) Subjective: c/o anxiety, headache, sweats, shakes, and muscle aches. Objective: 11/28/19 13:32 Vital Signs 11/28/19 11/28/19 11/28/19 07:38 09:42 13:02 Temperature 97.9 F 98.0 F 96.9 F L Pulse Rate 68 93 H 84 Respiratory 16 18 18 Rate Blood Pressure 90/57 L 113/66 107/61 Laboratory Last Values WBC 6.6 K/mm3 (4.0-10.0) 11/28/19 08:00 RBC 3.71 M/mm3 (3.60-5.2) 11/28/19 08:00 Hgb 11.2 GM/dL (10.7-15.3) 11/28/19 08:00 Hct 34.6 % (32.4-45.2) 11/28/19 08:00 MCV 93.2 fl (80-96) 11/28/19 08:00 MCH 30.2 pg (25.7-33.7) 11/28/19 08:00 MCHC 32.4 g/dl (32.0-36.0) 11/28/19 08:00 RDW 14.3 % (11.6-15.6) 11/28/19 08:00 Plt Count 285 K/MM3 (134-434) 11/28/19 08:00 MPV 7.9 fl (7.5-11.1) 11/28/19 08:00 Sodium 144 mmol/L (136-145) 11/28/19 08:00 Potassium 4.0 mmol/L (3.5-5.1) 11/28/19 08:00 Chloride 108 mmol/L (98-107) H 11/28/19 08:00 Carbon Dioxide 29 mmol/L (21-32) 11/28/19 08:00 Anion Gap 6 MMOL/L (8-16) L 11/28/19 08:00 BUN 14.6 mg/dL (7-18) 11/28/19 08:00 Creatinine 0.8 mg/dL (0.55-1.3) 11/28/19 08:00 Est GFR (CKD-EPI)AfAm 119.60 11/28/19 08:00 Est GFR (CKD-EPI)NonAf 103.19 11/28/19 08:00 Random Glucose 74 mg/dL (74-106) 11/28/19 08:00 Calcium 9.1 mg/dL (8.5-10.1) 11/28/19 08:00 Total Bilirubin 0.1 mg/dL (0.2-1) L 11/28/19 08:00 AST 17 U/L (15-37) 11/28/19 08:00 ALT 20 U/L (13-61) 11/28/19 08:00 Alkaline Phosphatase 54 U/L (45-117) 11/28/19 08:00 Total Protein 6.4 g/dl (6.4-8.2) 11/28/19 08:00 Albumin 3.1 g/dl (3.4-5.0) L 11/28/19 08:00 POC Urine HCG, Qual Negative 11/27/19 17:09 RPR Titer Nonreactive (NONREACTIVE) 11/28/19 08:00 Labs noted. Assessment: 11/28/19 13:32 AOX3, in no acute respiratory distress. Full ROM, ambulating in the unit. Withdrawal symptoms. Plan: continue detox.
[2019-11-28] MEDS: diazePAM 5 MG TABLET PO PRN (18:30)
[2019-11-28] MEDS: THIAMINE HCL 100 MG TABLET (FP) PO SCH (22:21)
[2019-11-28] MEDS: QUEtiapine FUMARATE 50 MG TABLET PO SCH (22:21)
[2019-11-29] MEDS: diazePAM 5 MG TABLET PO SCH ×2 (06:03→18:42)
[2019-11-29] MEDS ORDERED: METHADONE HCL 10 MG TABLET (FOR DETOX USE ONLY) PO ONE (10:00)
[2019-11-29] MEDS: PRENATAL VITAMINS W/ FOLIC ACID TABLET (FP) PO SCH (10:13)
[2019-11-29] MEDS: NICOTINE 21 MG/24 HOURS TOPICAL PATCH TD SCH (10:13)
--- NOTE | 2019-11-29 11:47 | PN ---
BHS COWS - Scale Resting Pulse: 1= [place] 81-100 Sweatin= Chills/Flushing Restless Observation: 1= Difficult to Sit Still Pupil Size: 1= Pupils >than Normal Bone or Joint Aches: 2= Severe Diffuse Aches Runny Nose/ Eye Tearin= Runny Nose/Eyes GI Upset > 30mins: 2= Nausea/Diarrhea Tremor Observation of Outstretched Hands: 2= Slight Tremor Visible Yawning Observation: 1= 1-2x During Session Anxiety or Irritability: 1=Feels Anxious/Irritable Goose Flesh Skin: 0=Smooth Skin COWS Score: 14 S Progress Note (SOAP) Subjective: pt here for detox from heroin. Pt states she still feels uncomfortable with some with drawal Sx- high COWS score O: Vital Signs - 24 hr 11/28/19 11/28/19 11/28/19 13:02 17:17 21:33 Temperature 96.9 F L 98.2 F 98.8 F Pulse Rate 84 90 93 H Respiratory 18 17 17 Rate Blood Pressure 107/61 104/65 110/63 11/29/19 11/29/19 11/29/19 00:30 03:30 06:00 Temperature 99.7 F H Pulse Rate 103 H Respiratory 16 16 16 Rate Blood Pressure 99/63 11/29/19 11/29/19 07:12 09:47 Temperature 99.3 F 97.5 F L Pulse Rate 112 H Respiratory 18 Rate Blood Pressure 105/58 L high [place] Laboratory Tests 11/27/19 11/28/19 11/28/19 17:09 08:00 08:00 WBC 6.6 RBC 3.71 Hgb 11.2 Hct 34.6 MCV 93.2 MCH 30.2 MCHC 32.4 RDW 14.3 Plt Count 285 MPV 7.9 Sodium 144 Potassium 4.0 Chloride 108 H Carbon Dioxide 29 Anion Gap 6 L BUN 14.6 Creatinine 0.8 Est GFR (CKD-EPI)AfAm 119.60 Est GFR (CKD-EPI)NonAf 103.19 Random Glucose 74 Calcium 9.1 Total Bilirubin 0.1 L AST 17 ALT 20 Alkaline Phosphatase 54 Total Protein 6.4 Albumin 3.1 L POC Urine HCG, Qual Negative RPR Titer 11/28/19 08:00 WBC RBC Hgb Hct MCV MCH MCHC RDW Plt Count MPV Sodium Potassium Chloride Carbon Dioxide Anion Gap BUN Creatinine Est GFR (CKD-EPI)AfAm Est GFR (CKD-EPI)NonAf Random Glucose Calcium Total Bilirubin AST ALT Alkaline Phosphatase Total Protein Albumin POC Urine HCG, Qual RPR Titer Nonreactive a/p OUD- with high COWS- will give extra dose of methadone 5mg. d/w pt she can also take clonidine/vistaril q4h pt will go for MAT methadone
[2019-11-29] MEDS ORDERED: hydrOXYzine PAMOATE 25 MG CAPSULE (FP) PO PRN (11:48)
[2019-11-29] MEDS ORDERED: METHADONE HCL 5 MG TABLET (FOR DETOX USE ONLY) PO ONE (13:15)
[2019-11-29] MEDS: diazePAM 5 MG TABLET PO PRN ×2 (14:55→20:57)
[2019-11-29] MEDS: QUEtiapine FUMARATE 50 MG TABLET PO SCH (22:17)
[2019-11-29] MEDS: THIAMINE HCL 100 MG TABLET (FP) PO SCH (22:17)
[2019-11-30] MEDS ORDERED: diazePAM 5 MG TABLET PO ONE (06:00)
[2019-11-30] MEDS ORDERED: METHADONE HCL 5 MG TABLET (FOR DETOX USE ONLY) ONE (09:19)
[2019-11-30] MEDS ORDERED: METHADONE HCL 10 MG TABLET (FOR DETOX USE ONLY) ONE (09:20)
[2019-11-30] MEDS ORDERED: METHADONE (DETOX) 10 MG, METHADONE (DETOX) 5 MG PO ONE (10:00)
[2019-11-30] MEDS: NICOTINE 21 MG/24 HOURS TOPICAL PATCH TD SCH (10:44)
[2019-11-30] MEDS: PRENATAL VITAMINS W/ FOLIC ACID TABLET (FP) PO SCH (10:44)
[2019-11-30] MEDS: diazePAM 5 MG TABLET PO PRN (14:30)
--- NOTE | 2019-11-30 15:02 | PN ---
[facility] COWS - Scale Resting Pulse: 0= TN 80 or Below Sweatin= No chills or Flushing Restless Observation: 0= Sits Still Pupil Size: 0= Normal to Room Light Bone or Joint Aches: 1= Mild Discomfort Runny Nose/ Eye Tearin= Nasal Congestion GI Upset > 30mins: 1= Stomach Cramp Tremor Observation of Outstretched Hands: 1= Tremor [place], Not Seen Yawning Observation: 0= None Anxiety or Irritability: 1=Feels Anxious/Irritable Goose Flesh Skin: 0=Smooth Skin COWS Score: 5 BHS Progress Note (SOAP) Subjective: pt doing well with heroin detox. O: Vital Signs - 24 hr 11/29/19 11/29/19 11/30/19 17:42 21:57 00:30 Temperature 98.2 F 98.5 F Pulse Rate 99 H 106 H Respiratory 18 18 16 Rate Blood Pressure 94/59 L 133/66 11/30/19 11/30/19 11/30/19 03:52 08:50 10:03 Temperature 97.9 F 97.3 F L Pulse Rate 80 104 H Respiratory 16 16 16 Rate Blood Pressure 90/48 L 105/50 L Laboratory Tests 11/27/19 11/28/19 11/28/19 17:09 08:00 08:00 WBC 6.6 RBC 3.71 Hgb 11.2 Hct 34.6 MCV 93.2 MCH 30.2 MCHC 32.4 RDW 14.3 Plt Count 285 MPV 7.9 Sodium 144 Potassium 4.0 Chloride 108 H Carbon Dioxide 29 Anion Gap 6 L BUN 14.6 Creatinine 0.8 Est GFR (CKD-EPI)AfAm 119.60 Est GFR (CKD-EPI)NonAf 103.19 Random Glucose 74 Calcium 9.1 Total Bilirubin 0.1 L AST 17 ALT 20 Alkaline Phosphatase 54 Total Protein 6.4 Albumin 3.1 L POC Urine HCG, Qual Negative RPR Titer 11/28/19 08:00 WBC RBC Hgb Hct MCV MCH MCHC RDW Plt Count MPV Sodium Potassium Chloride Carbon Dioxide Anion Gap BUN Creatinine Est GFR (CKD-EPI)AfAm Est GFR (CKD-EPI)NonAf Random Glucose Calcium Total Bilirubin AST ALT Alkaline Phosphatase Total Protein Albumin POC Urine HCG, Qual RPR Titer Nonreactive a/p: OUD- pt has a plan to f/u with methadone program to start Rx day after discharge
[2019-11-30] MEDS: QUEtiapine FUMARATE 50 MG TABLET PO SCH (22:00)
[2019-11-30] MEDS: THIAMINE HCL 100 MG TABLET (FP) PO SCH (22:01)
[2019-12-01 09:13] VITALS: BP 115/58; PULSE 77; TEMP 97.1
[2019-12-01] MEDS: NICOTINE 21 MG/24 HOURS TOPICAL PATCH TD SCH (09:34)
[2019-12-01] MEDS: PRENATAL VITAMINS W/ FOLIC ACID TABLET (FP) PO SCH (09:34)
[2019-12-01] MEDS ORDERED: METHADONE HCL 10 MG TABLET (FOR DETOX USE ONLY) PO ONE (10:00)
--- NOTE | 2019-12-01 16:14 | DS ---
[facility] Detox Discharge Summary Admission Date: 11/27/19 Discharge Date: 12/01/19 - History Present History: Alcohol Dependence, Cocaine Dependence, Opioid Dependence, Sedative Dependence Additional Comments: Pt completed detox successfully and discharged safely. Patient requested inpatient admission to [facility] rehab. - Physical Exam Results Vital Signs: Vital Signs Temperature 97.1 F L 12/01/19 09:13 Pulse Rate 77 12/01/19 09:13 Respiratory Rate 16 12/01/19 09:13 Blood Pressure 115/58 L 12/01/19 09:13 O2 Sat by Pulse Oximetry (%) Pertinent Admission Physical Exam Findings: Withdrawal sxs Laboratory Tests 11/27/19 11/28/19 11/28/19 17:09 08:00 08:00 WBC 6.6 RBC 3.71 Hgb 11.2 Hct 34.6 MCV 93.2 MCH 30.2 MCHC 32.4 RDW 14.3 Plt Count 285 MPV 7.9 Sodium 144 Potassium 4.0 Chloride 108 H Carbon Dioxide 29 Anion Gap 6 L BUN 14.6 Creatinine 0.8 Est GFR (CKD-EPI)AfAm 119.60 Est GFR (CKD-EPI)NonAf 103.19 Random Glucose 74 Calcium 9.1 Total Bilirubin 0.1 L AST 17 ALT 20 Alkaline Phosphatase 54 Total Protein 6.4 Albumin 3.1 L POC Urine HCG, Qual Negative RPR Titer 11/28/19 08:00 WBC RBC Hgb Hct MCV MCH MCHC RDW Plt Count MPV Sodium Potassium Chloride Carbon Dioxide Anion Gap BUN Creatinine Est GFR (CKD-EPI)AfAm Est GFR (CKD-EPI)NonAf Random Glucose Calcium Total Bilirubin AST ALT Alkaline Phosphatase Total Protein Albumin POC Urine HCG, Qual RPR Titer Nonreactive Labs reviewed - Treatment Hospital Course: Detox Protocol Followed, Detoxed Safely, Responded well, Discharged Condition Good, Rehab Referral Accepted - Medication Discharge Medications: Ambulatory Orders Clindamycin [Cleocin -] 300 mg PO Q6HPO 11/27/19 Naloxone HCl [Narcan -] 0.4 mg IM PRN PRN #1 vial 11/30/19 Vitamins (Sjr) - 1 tab PO DAILY #30 tablet 11/30/19 Thiamine HCl [Vitamin B1 -] 100 mg PO HS #30 tablet 11/30/19 - Diagnosis (1) Alcohol dependence, uncomplicated Status: Acute (2) Cocaine dependence Status: Acute Qualifiers: Substance use status: uncomplicated Qualified Code(s): F14.20 - Cocaine dependence, uncomplicated (3) Opioid dependence with withdrawal Status: Acute (4) Sedative, hypnotic or anxiolytic dependence, uncomplicated Status: Acute (5) Substance-induced anxiety disorder Status: Acute (6) Cellulitis Status: Acute Qualifiers: Site of cellulitis: extremity Site of cellulitis of extremity: lower extremity Laterality: left Qualified Code(s): L03.116 - Cellulitis of left lower limb (7) MDD (major depressive disorder), recurrent episode, moderate Status: Chronic (8) Nicotine dependence Status: Chronic - AMA Did Patient Leave Against Medical Advice: No (Accepted admission to [facility] rehab)
[2019-12-02] MEDS ORDERED: METHADONE HCL 5 MG TABLET (FOR DETOX USE ONLY) PO ONE (06:00)
== END 2019-12-01 09:34 | disposition home or self-care (01) | DRG 773 ==
LOC: YASAS 14:30 → Y6N 17:44
PROVIDERS: ADMIT Allergy & Immunology; ATTEND Allergy & Immunology
PROC: HZ2ZZZZ Detoxification Services for Substance Abuse Treatment (ICD-10-PCS; principal; 2019-11-27)
DX: F11.23 Opioid dependence with withdrawal (principal); F10.230 Alcohol dependence with withdrawal, uncomplicated; F13.230 Sedative, hypnotic or anxiolytic dependence with withdrawal, uncomplicated; F14.20 Cocaine dependence, uncomplicated; F17.210 Nicotine dependence, cigarettes, uncomplicated; F19.280 Other psychoactive substance dependence with psychoactive substance-induced anxiety disorder; F19.282 Other psychoactive substance dependence with psychoactive substance-induced sleep disorder; F33.1 Major depressive disorder, recurrent, moderate; L03.116 Cellulitis of left lower limb; M79.7 Fibromyalgia; K59.4 Anal spasm; M54.30 Sciatica, unspecified side; Z91.018 Allergy to other foods
CPT/HCPCS: 36415; 80053; 81025; 85027; 86593

== ENCOUNTER 2024-06-13 12:25 | Inpatient (IN) | payer OTHER ==
[2024-06-13 13:25] VITALS: BMI 28.9
[2024-06-13] MEDS ORDERED: MAG HYDROX/AL HYDROX/SIMETH 30 ML UNIT-DOSE CUP PO PRN (16:07)
[2024-06-13] MEDS ORDERED: LOPERAMIDE HCL 2 MG CAPSULE PO PRN (16:07)
[2024-06-13] MEDS ORDERED: BENZONATATE 200 MG CAPSULE PO PRN (16:07)
[2024-06-13] MEDS ORDERED: BISMUTH SUBSALICYLATE 524 MG/30 ML PO PRN (16:07)
[2024-06-13] MEDS ORDERED: NALOXONE HCL 0.4 MG/ML VIAL IM PRN (16:07)
[2024-06-13] MEDS ORDERED: NICOTINE POLACRILEX 2 MG GUM BUC PRN (16:07)
[2024-06-13] MEDS ORDERED: NALOXONE (NARCAN) HCL 4 MG/0.1 ML SPRAY NS PRN (16:07)
[2024-06-13] MEDS ORDERED: guaiFENesin 600 MG TABLET.ER (FP) PO PRN (16:07)
[2024-06-13] MEDS ORDERED: POLYETHYLENE GLYCOL (HEALTHYLAX) 3350 17 GM PACKET PO PRN (16:07)
[2024-06-13] MEDS ORDERED: DICYCLOMINE HCL 10 MG CAPSULE PO PRN (16:07)
[2024-06-13] MEDS ORDERED: diazePAM 5 MG TABLET ONE (17:19)
[2024-06-13] MEDS: diazePAM 5 MG TABLET PO ONE (17:22)
[2024-06-13] MEDS: diazePAM 5 MG TABLET PO SCH (17:24)
[2024-06-13] MEDS: PRENATAL VITAMINS W/ FOLIC ACID TABLET (FP) PO SCH (18:00)
[2024-06-13] MEDS: NICOTINE 7 MG/24 HOURS TOPICAL PATCH TD SCH (18:00)
[2024-06-13] MEDS: ACETAMINOPHEN 325 MG TABLET (FP) PO PRN (18:02)
[2024-06-13] MEDS: QUEtiapine FUMARATE 25 MG TABLET PO ONE (22:34)
[2024-06-13] MEDS: THIAMINE 100 MG TABLET PO SCH (22:34)
[2024-06-13] MEDS: MELATONIN 5 MG TABLETS PO SCH (22:34)
[2024-06-13] MEDS: hydrOXYzine PAMOATE 25 MG CAPSULE (FP) PO PRN (22:39)
[2024-06-14] MEDS: IBUPROFEN 400 MG TABLET (FP) PO PRN (05:49)
[2024-06-14] MEDS: methaDONE HCL 40 MG DISPERSABLE TABLET PO ONE (10:44)
[2024-06-14 12:00] LABS: HEMATOCRIT 39.2 % (32.4-45.2); HEMOGLOBIN 12.9 GM/dL (10.7-15.3); MCH 30.3 pg (25.7-33.7); MCHC 32.8 g/dl (32.0-36.0); MEAN CELL VOLUME 92.2 fl (80-96); MEAN PLT VOLUME 9.2 fl (7.5-11.1); PLATELET COUNT 208 10^3/uL (134-434); RBC 4.25 M/mm3 (3.60-5.2); RDW 14.2 % (11.6-15.6); WHITE BLOOD COUNT 5.9 K/mm3 (4.0-10.0)
[2024-06-14 12:11] LABS: CHLORIDE 102 mmol/L (98-107); POTASSIUM 3.3 mmol/L (3.5-5.1); SODIUM 139 mmol/L (136-145)
[2024-06-14 12:30] LABS: BLOOD UREA NITROGEN 9.9 mg/dL (7-18); CALCIUM 9.5 mg/dL (8.5-10.1)
[2024-06-14 12:31] LABS: ANION GAP 8 mmol/L (4-13); CO2 29 mmol/L (21-32); GLUCOSE,RANDOM 77 mg/dL (74-106)
[2024-06-14 12:33] LABS: SGPT/ALT 15 U/L (13-61)
[2024-06-14 12:34] LABS: CREATININE 1.1 mg/dL (0.55-1.3); SGOT/AST 12 U/L (15-37)
[2024-06-14 12:35] LABS: BILIRUBIN,TOTAL 0.4 mg/dL (0.2-1)
[2024-06-14 12:36] LABS: ALK PHOS 75 U/L (45-117); TOT PROT 7.6 g/dl (6.4-8.2)
[2024-06-14] MEDS: methaDONE HCL 10 MG TABLET PO ONE (14:59)
[2024-06-14] MEDS: PHENAZOPYRIDINE HCL 100 MG TABLET (FP) PO ONE (20:54)
[2024-06-14] MEDS: QUEtiapine FUMARATE 25 MG TABLET PO SCH (22:23)
[2024-06-14] MEDS: ONDANSETRON *ODT* 4 MG TABLET SL PRN (22:26)
[2024-06-14 23:40] LABS: EPI CELLS >36 /uL (0-25.1); HYALINE CASTS 3 /uL (0-3.1); URINE APPEARANCE CLOUDY; URINE BILIRUBIN 1+ (NEGATIVE); URINE COLOR DK YELLOW; URINE GLUCOSE (UA) NEGATIVE (NEGATIVE); URINE KETONE TRACE (NEGATIVE); URINE LEUK ESTERASE 1+ (NEGATIVE); URINE NITRITE POSITIVE (NEGATIVE); URINE PROTEIN TRACE (NEGATIVE); URINE RBC 23 /uL (0-23.9); URINE WBC 92 /uL (0-25.8)
[2024-06-15 00:28] LABS: URINE BACTERIA 812.1 /uL (0-1359)
[2024-06-15] MEDS: methaDONE 40 MG, methaDONE 30 MG PO SCH (05:54)
[2024-06-15] MEDS: diazePAM 5 MG TABLET PO SCH (05:54)
[2024-06-15] MEDS ORDERED: methaDONE HCL 10 MG TABLET PO SCH (06:00)
[2024-06-15] MEDS: BENZOCAINE/MENTHOL (CHLORASEPTIC ) LOZENGE MM PRN (09:48)
[2024-06-15] MEDS: POTASSIUM CHLORIDE ORAL LIQUID 20 MEQ/15 ML PO ONE (16:04)
[2024-06-15] MEDS: IBUPROFEN 600 MG TABLET (FP) PO PRN (16:10)
[2024-06-15] MEDS: diazePAM 5 MG TABLET PO PRN (17:37)
[2024-06-15] MEDS ORDERED: NITROFURANTOIN MACROCRYSTAL 50 MG CAPSULE (FP) PO SCH (18:00)
[2024-06-15] MEDS: SULFAMETHOXAZOLE/TRIMETHOPRIM 800MG/160MG D.S. TABLET PO SCH (22:01)
[2024-06-16] MEDS: diazePAM 5 MG TABLET PO SCH (06:04)
[2024-06-16] MEDS: MAGNESIUM HYDROX 2400MG/30ML ORAL SUSPENSION 30 ML CUP PO PRN (09:55)
[2024-06-16] MEDS: DOCUSATE SODIUM 100 MG CAPSULE (FP) PO SCH (13:24)
[2024-06-16] MEDS: SENNOSIDES 8.6MG TABLET (FP) PO SCH (22:01)
[2024-06-16] MEDS: METHOCARBAMOL 500 MG TABLET PO PRN (22:01)
[2024-06-19 09:17] VITALS: RESP 16
[2024-06-19 17:58] VITALS: BP 106/74; PULSE 89; TEMP 98.7
== END 2024-06-19 20:02 | disposition other institution (70) | DRG 773 ==
LOC: YASAS 12:25 → Y6N 16:41
PROVIDERS: ADMIT Allergy & Immunology; ATTEND Surgery
PROC: HZ2ZZZZ Detoxification Services for Substance Abuse Treatment (ICD-10-PCS; principal; 2024-06-13)
DX: F13.230 Sedative, hypnotic or anxiolytic dependence with withdrawal, uncomplicated (principal); F11.20 Opioid dependence, uncomplicated; F17.210 Nicotine dependence, cigarettes, uncomplicated; F19.280 Other psychoactive substance dependence with psychoactive substance-induced anxiety disorder; F19.24 Other psychoactive substance dependence with psychoactive substance-induced mood disorder; F32.9 Major depressive disorder, single episode, unspecified; F41.9 Anxiety disorder, unspecified; F43.10 Post-traumatic stress disorder, unspecified; K59.03 Drug induced constipation; N39.0 Urinary tract infection, site not specified; Z86.19 Personal history of other infectious and parasitic diseases
CPT/HCPCS: 36415; 80053; 80305; 80307; 81003; 84132; 85027; 86780; 87811; 93005; 93010; Q0162

== ENCOUNTER 2024-06-19 20:25 | Inpatient (IN) | payer OTHER ==
[~2024-06-19 20:25] MED LIST: BENZOCAINE/MENTHOL (CHLORASEPTIC ) LOZENGE MM PRN; BENZONATATE 200 MG CAPSULE PO PRN; IBUPROFEN 400 MG TABLET (FP) PO PRN; LOPERAMIDE HCL 2 MG CAPSULE PO PRN; MAG HYDROX/AL HYDROX/SIMETH 30 ML UNIT-DOSE CUP PO PRN; MAGNESIUM HYDROX 2400MG/30ML ORAL SUSPENSION 30 ML CUP PO PRN; NALOXONE (NARCAN) HCL 4 MG/0.1 ML SPRAY NS PRN; NALOXONE HCL 0.4 MG/ML VIAL IM PRN; NICOTINE POLACRILEX 2 MG GUM BUC PRN; NICOTINE POLACRILEX 2 MG LOZENGE BC PRN; POLYETHYLENE GLYCOL (HEALTHYLAX) 3350 17 GM PACKET PO PRN; guaiFENesin 600 MG TABLET.ER (FP) PO PRN
[2024-06-19] MEDS: QUEtiapine FUMARATE 25 MG TABLET PO SCH (21:06)
[2024-06-19] MEDS: SULFAMETHOXAZOLE/TRIMETHOPRIM 800MG/160MG D.S. TABLET PO SCH ×2 (21:10→21:12)
[2024-06-19] MEDS: ACETAMINOPHEN 325 MG TABLET (FP) PO PRN (21:12)
[2024-06-19] MEDS: DOCUSATE SODIUM 100 MG CAPSULE (FP) PO SCH (21:12)
[2024-06-19] MEDS: THIAMINE 100 MG TABLET PO SCH (21:12)
[2024-06-19] MEDS: hydrOXYzine PAMOATE 25 MG CAPSULE (FP) PO PRN (21:13)
[2024-06-19] MEDS: MELATONIN 5 MG TABLETS PO SCH (21:13)
[2024-06-19] MEDS ORDERED: DOCUSATE SODIUM 100 MG CAPSULE (FP) PO SCH (22:00)
[2024-06-19] MEDS ORDERED: SULFAMETHOXAZOLE/TRIMETHOPRIM 800MG/160MG D.S. TABLET PO SCH (22:00)
[2024-06-20] MEDS: methaDONE 40 MG, methaDONE 30 MG PO SCH (05:49)
[2024-06-20] MEDS: NICOTINE 7 MG/24 HOURS TOPICAL PATCH TD SCH (05:49)
[2024-06-20] MEDS ORDERED: methaDONE HCL 10 MG TABLET PO SCH (06:00)
[2024-06-20] MEDS ORDERED: NICOTINE 7 MG/24 HOURS TOPICAL PATCH TD SCH (10:00)
[2024-06-20] MEDS: PRENATAL VITAMINS W/ FOLIC ACID TABLET (FP) PO SCH (10:31)
[2024-06-20] MEDS: SENNOSIDES 8.6MG TABLET (FP) PO PRN (22:27)
[2024-06-21] MEDS: IBUPROFEN 600 MG TABLET (FP) PO PRN (06:05)
[2024-06-21 09:24] VITALS: BP 117/75; PULSE 81; RESP 16; TEMP 98.3
== END 2024-06-21 10:05 | disposition home or self-care (01) | DRG 772 ==
LOC: YASAS 20:25 → Y3NR 20:27
PROVIDERS: ADMIT Allergy & Immunology; ATTEND Psychiatry & Neurology Pain Medicine
PROC: HZ42ZZZ Group Counseling for Substance Abuse Treatment, Cognitive-Behavioral (ICD-10-PCS; principal; 2024-06-19)
DX: F14.10 Cocaine abuse, uncomplicated (principal); F13.20 Sedative, hypnotic or anxiolytic dependence, uncomplicated; F11.20 Opioid dependence, uncomplicated; F17.210 Nicotine dependence, cigarettes, uncomplicated; F41.9 Anxiety disorder, unspecified; F32.9 Major depressive disorder, single episode, unspecified; R45.88 Nonsuicidal self-harm